=== PATIENT | female | born 1960 | race African-American/Black ===

== ENCOUNTER 2023-05-08 22:38 | Emergency (ER) | payer OTHER ==
[~2023-05-08] VITALS: Ht 167.6 cm; Wt 90.7 kg
[2023-05-08] MEDS ORDERED: DEXT15DR6 EACHEYE (23:34)
[2023-05-08] MEDS ORDERED: ERYT3.5O9 EACHEYE (23:34)
[2023-05-09 00:06] VITALS: BP 145/98; TEMP 98; O2SAT 98
== END 2023-05-09 00:10 | disposition home or self-care (01) ==
LOC: ER 22:49
DX: H57.89 Other specified disorders of eye and adnexa (principal); Z77.098 Contact with and (suspected) exposure to other hazardous, chiefly nonmedicinal, chemicals; I10 Essential (primary) hypertension; Z79.899 Other long term (current) drug therapy